=== PATIENT | male | born 1970 | race American Indian/Alaskan Native ===

== ENCOUNTER 2017-07-09 12:22 | Emergency (ER) | payer OTHER ==
--- NOTE | 2017-07-09 12:47 | Emergency Department Report ---
ED Animal Bite HPI - General Chief Complaint: Animal Bite Stated Complaint: CAT STRTCHED , LEFT FINGER ABRASION Time Seen by Provider: 07/09/17 12:47 Source: patient Mode of arrival: Ambulatory Limitations: No Limitations - History of Present Illness MD Complaint: other (scratched by cat) -: Sudden Location: other (finger) Animal: cat Animal Control Notified: Yes Description: unknown animal Mechanism: scratch Context: other (cat had a can on his head. pt was trying to take it off and cat scratched him. ) Associated Symptoms: other (mild superficial scratch) - Related Data Patient Tetanus UTD: Yes Previous Rx's Medication Instructions Recorded Last Taken Type Amoxicillin [Trimox CAP] 500 mg PO BID #20 capsule 07/09/17 Unknown Rx Allergies Allergy/AdvReac Type Severity Reaction Status Date / Time No Known Allergies Allergy Unverified 07/09/17 12:33 ED Review of Systems ROS: Stated complaint: CAT STRTCHED , LEFT FINGER ABRASION Other details as noted in HPI Comment: All other systems reviewed and negative Skin: other (cat scratch) ED Past Medical Hx - Past Medical History Previous Medical History?: No - Surgical History Past Surgical History?: No - Social History Smoking Status: Current Every Day Smoker Substance Use Type: None - Medications Home Medications: Home Medications Medication Instructions Recorded Confirmed Last Taken Type Amoxicillin [Trimox CAP] 500 mg PO BID #20 capsule 07/09/17 Unknown Rx ED Physical Exam - General Limitations: No Limitations General appearance: alert - Head Head exam: Present: atraumatic - Eye Eye exam: Present: PERRL - ENT ENT exam: Present: mucous membranes moist - Neck Neck exam: Present: normal inspection - Respiratory Respiratory exam: Present: normal lung sounds bilaterally - Cardiovascular Cardiovascular Exam: Present: regular rate - GI/Abdominal GI/Abdominal exam: Present: soft - Rectal Rectal exam: Present: deferred - Extremities Exam Extremities exam: Present: normal inspection - Back Exam Back exam: Present: normal inspection - Neurological Exam Neurological exam: Present: alert, oriented X3 - Psychiatric Psychiatric exam: Present: normal affect, normal mood - Skin Skin exam: Present: warm, dry, other (superficial mass to distal finger) ED Course Vital Signs 07/09/17 12:30 Temperature 98.1 F Pulse Rate 93 H Respiratory 18 Rate Blood Pressure 144/95 O2 Sat by Pulse 95 Oximetry - Reevaluation(s) Reevaluation #1: 07/09/17 13:16 to er w cat scratch he was attempting to take a can off the cats head the can had gotten stuck while the cat was eating [facility] the scratch is superficial and the pt cleaned immediately. [facility] staff notified by the patient not concerned for rabies tdap utd no bleeding n/v intact rapid cap refill will tx w antibiotics Critical care attestation.: If time is entered above; I have spent that time in minutes in the direct care of this critically ill patient, excluding procedure time. ED Disposition Clinical Impression: Cat scratch Disposition: DC-01 TO HOME OR SELFCARE Is pt being admited?: No Does the pt Need Aspirin: No Condition: Stable Instructions: Animal Bite (ED) Prescriptions: Amoxicillin [Trimox CAP] 500 mg PO BID #20 capsule Referrals: PRIMARY CARE, [Primary Care Provider] - 3-5 Days Time of Disposition: 13:08
[2017-07-09 13:25] VITALS: BP 136/94
== END 2017-07-09 13:24 | disposition home or self-care (01) ==
LOC: ED 12:22
DX: S60.419A Abrasion of unspecified finger, initial encounter (principal); W55.03XA Scratched by cat, initial encounter; Y93.89 Activity, other specified; Y92.89 Other specified places as the place of occurrence of the external cause; Y99.8 Other external cause status
CPT/HCPCS: 99282

== ENCOUNTER 2017-08-19 13:31 | Emergency (ER) | payer OTHER ==
[2017-08-19 13:49] VITALS: BP 139/89
--- NOTE | 2017-08-19 14:53 | Emergency Department Report ---
ED Male HPI - General Chief complaint: Urogenital-Male Stated complaint: PAIN IN GROIN Time Seen by Provider: 08/19/17 14:47 Source: patient Mode of arrival: Ambulatory Limitations: No Limitations - History of Present Illness Initial comments: 46-year-old male past medical history inguinal hernia presents for discussion of his left inguinal hernia. Patient states he would see a surgeon and wants consultation on whether or not it is worth getting hernia surgery. Patient denies fever chills nausea vomiting abdominal pain dysuria difficulty moving his bowels or any other complaints. Patient states that hernia is reducible and he occasionally has an aching pain but it dissipates easily. Patient has no pain at time of clinical interview. Patient is awake alert and oriented 3 fully lucid and ambulatory without assistance. Patient states he has read some information about inguinal hernias and has already contacted a surgeon to have hernia fixed. Patient is questioning whether or not there any medicines that may help him. Location: left inguinal region Severity: moderate Quality: aching Consistency: constant Improves with: none Worsens with: none - Related Data Previous Rx's Medication Instructions Recorded Last Taken Type Amoxicillin [Trimox CAP] 500 mg PO BID #20 capsule 07/09/17 Unknown Rx Docusate Sodium [Colace] 100 mg PO BID PRN #1 bottle 08/19/17 Unknown Rx Naproxen 500 mg PO BID PRN #30 tablet 08/19/17 Unknown Rx Allergies Allergy/AdvReac Type Severity Reaction Status Date / Time No Known Allergies Allergy Unverified 07/09/17 12:33 ED Review of Systems ROS: Stated complaint: PAIN IN GROIN Other details as noted in HPI Constitutional: denies: chills, fever Eyes: denies: eye pain, eye discharge, vision change ENT: denies: ear pain, throat pain Respiratory: denies: cough, shortness of breath, wheezing Cardiovascular: denies: chest pain, palpitations Endocrine: no symptoms reported Gastrointestinal: denies: abdominal pain, nausea, diarrhea Genitourinary: as per HPI, other (left inguinal hernia). denies: urgency, dysuria Musculoskeletal: denies: back pain, joint swelling, arthralgia Skin: denies: rash, lesions Neurological: denies: headache, weakness, paresthesias Psychiatric: denies: anxiety, depression Hematological/Lymphatic: denies: easy bleeding, easy bruising ED Past Medical Hx - Past Medical History Previous Medical History?: Yes Additional medical history: hernia - Social History Smoking Status: Never Smoker Substance Use Type: None - Medications Home Medications: Home Medications Medication Instructions Recorded Confirmed Last Taken Type Amoxicillin [Trimox CAP] 500 mg PO BID #20 capsule 07/09/17 Unknown Rx Docusate Sodium [Colace] 100 mg PO BID PRN #1 bottle 08/19/17 Unknown Rx Naproxen 500 mg PO BID PRN #30 tablet 08/19/17 Unknown Rx ED Physical Exam - General Limitations: No Limitations General appearance: alert, in no apparent distress - Head Head exam: Present: atraumatic, normocephalic - Eye Eye exam: Present: normal appearance, PERRL, EOMI - ENT ENT exam: Present: mucous membranes moist - Neck Neck exam: Present: normal inspection, full ROM - Respiratory Respiratory exam: Present: normal lung sounds bilaterally. Absent: respiratory distress - Cardiovascular Cardiovascular Exam: Present: regular rate, normal rhythm. Absent: systolic murmur, diastolic murmur, rubs, gallop - GI/Abdominal GI/Abdominal exam: Present: soft, normal bowel sounds - Rectal Rectal exam: Present: deferred - exam: Present: scrotal swelling (left direct inguinal hernia. Easily reducible on light. Little to no pain experienced palpation on clinical exam or palpation palpation) External exam: Present: swelling (reducible left-sided inguinal hernia on clinical exam) - Extremities Exam Extremities exam: Present: normal inspection - Back Exam Back exam: Present: normal inspection - Neurological Exam Neurological exam: Present: alert, oriented X3, CN II-XII intact, normal gait - Psychiatric Psychiatric exam: Present: normal affect, normal mood - Skin Skin exam: Present: warm, dry, intact, normal color. Absent: rash ED Course Vital Signs 08/19/17 13:44 Temperature 98.3 F Pulse Rate 72 Respiratory 16 Rate Blood Pressure 139/89 O2 Sat by Pulse 99 Oximetry ED Medical Decision Making - Medical Decision Making A/P: Reducible left inguinal hernia 1-patient has no clinical signs of incarcerated or irreducible inguinal hernia. Hernia is easily reducible with light palpation. Patient does not have exquisite tenderness no fever no chills no nausea no vomiting. States he has had imaging in the past and has been diagnosed with an inguinal hernia for more than a year. 2-naproxen when necessary and stool softeners when necessary 3-patient states he has contacted a surgeon Dr. Logan to have inguinal hernia corrected. I advised him to do so as soon as possible 4- Critical care attestation.: If time is entered above; I have spent that time in minutes in the direct care of this critically ill patient, excluding procedure time. ED Disposition Clinical Impression: Reducible left inguinal hernia Disposition: TO HOME OR SELFCARE Is pt being admited?: No Does the pt Need Aspirin: No Condition: Stable Instructions: Inguinal Hernia (ED) Prescriptions: Docusate Sodium [Colace] 100 mg PO BID PRN #1 bottle PRN Reason: Constipation Naproxen 500 mg PO BID PRN #30 tablet PRN Reason: Pain Referrals: ASHLEY REDDY DO [Staff Physician] - 3-5 Days FACUNDO LOGAN MD [Staff Physician] - 3-5 Days Forms: Work/School Release Form(ED) Time of Disposition: 14:49
== END 2017-08-19 15:00 | disposition home or self-care (01) ==
LOC: ED 13:31
DX: K40.90 Unilateral inguinal hernia, without obstruction or gangrene, not specified as recurrent (principal)
CPT/HCPCS: 99282

== ENCOUNTER 2018-12-01 12:44 | Emergency (ER) | payer OTHER ==
[2018-12-01 12:53] VITALS: BP 154/104
[2018-12-01] MEDS ORDERED: IBUPROFEN PO ONE (13:32)
[2018-12-01] MEDS ORDERED: HCTZ PO ONE (13:32)
--- NOTE | 2018-12-01 13:36 | Emergency Department Report ---
ED Recheck HPI - General Chief Complaint: Headache Stated Complaint: HEADACHE Time Seen by Provider: 12/01/18 13:31 Source: patient Mode of arrival: Ambulatory Limitations: No Limitations - History of Present Illness Initial Comments: Pt here with concern for inc bp. no symptoms Just turned 48 and he has drank and partied; and not taken meds. -: Gradual, days(s) Symptoms Since Prior Visit: no new symptoms - Related Data Allergies Allergy/AdvReac Type Severity Reaction Status Date / Time No Known Allergies Allergy Unverified 07/09/17 12:33 ED Review of Systems ROS: Stated complaint: HEADACHE Other details as noted in HPI Comment: All other systems reviewed and negative Constitutional: denies: chills Eyes: denies: as per HPI ENT: denies: throat pain Respiratory: denies: cough Cardiovascular: denies: palpitations Endocrine: denies: see HPI Gastrointestinal: denies: nausea Musculoskeletal: denies: back pain Skin: denies: rash Neurological: denies: as per HPI Psychiatric: denies: anxiety Hematological/Lymphatic: denies: as per HPI ED Past Medical Hx - Past Medical History Previous Medical History?: Yes Hx Hypertension: Yes Additional medical history: hernia - Surgical History Past Surgical History?: No - Family History Family history: no significant - Social History Smoking Status: Former Smoker Substance Use Type: Alcohol ED Physical Exam - General Limitations: No Limitations, Language Barrier General appearance: in no apparent distress - Head Head exam: Present: atraumatic - Eye Eye exam: Present: normal appearance, PERRL Pupils: Present: normal accommodation - ENT ENT exam: Present: mucous membranes moist - Neck Neck exam: Present: normal inspection, full ROM - Respiratory Respiratory exam: Present: normal lung sounds bilaterally - Cardiovascular Cardiovascular Exam: Present: regular rate, normal rhythm (HR 100) - GI/Abdominal GI/Abdominal exam: Present: soft, normal bowel sounds - Rectal Rectal exam: Present: deferred - Extremities Exam Extremities exam: Present: normal inspection, full ROM - Back Exam Back exam: Present: normal inspection, full ROM - Neurological Exam Neurological exam: Present: alert, oriented X3, CN II-XII intact - Psychiatric Psychiatric exam: Present: normal affect, normal mood - Skin Skin exam: Present: warm, dry ED Course Vital Signs 12/01/18 12/01/18 12/01/18 12:52 13:29 13:36 Temperature 98.2 F 98.2 F Pulse Rate 113 H 113 H Respiratory 20 18 18 Rate Blood Pressure 154/104 Blood Pressure 154/104 [Right] O2 Sat by Pulse 97 97 Oximetry ED Recheck MDM - Core Measures Measure Exclusions: not indicated - Medical Decision Making no focal neuro def re-educated medicated with home rx HR 90 dc home with pcp follow up Vital Signs 12/01/18 12/01/18 12/01/18 12:52 13:29 13:36 Temperature 98.2 F 98.2 F Pulse Rate 113 H 113 H Respiratory 20 18 18 Rate Blood Pressure 154/104 Blood Pressure 154/104 [Right] O2 Sat by Pulse 97 97 Oximetry Critical care attestation.: If time is entered above; I have spent that time in minutes in the direct care of this critically ill patient, excluding procedure time. ED Disposition Clinical Impression: Elevated blood pressure reading, HTN (hypertension), Medical non-compliance Disposition: DC-01 TO HOME OR SELFCARE Is pt being admited?: No Does the pt Need Aspirin: No Condition: Stable Instructions: DASH Eating Plan (ED), Low Sodium Diet (ED), Hypertension (ED) Additional Instructions: DIET TOLERATED HYDRATE WELL WITH WATER ACTIVITY TOLERATED FOLLOW UP PCP IF PERSISTS MOTRIN OR TYLENOL FOR PAIN OR FEVER MED GIVEN TODAY TAKE BP MED DAILY Referrals: [facility] [Outside] - 3-5 Days Forms: Work/School Release Form(ED) Time of Disposition: 13:38
== END 2018-12-01 14:16 | disposition home or self-care (01) ==
LOC: ED 12:44
DX: I10 Essential (primary) hypertension (principal); Z91.14 Patient's other noncompliance with medication regimen; Z87.891 Personal history of nicotine dependence